=== PATIENT | female | born 1985 | race African-American/Black ===

== ENCOUNTER 2023-06-15 21:59 | Emergency (ER) | payer MEDICAID, OTHER ==
[~2023-06-15] VITALS: Ht 170.2 cm; Wt 103.0 kg
[2023-06-15 22:42] LABS: Basophils # (auto) 0.1 10 ^3/uL (0-0.2); Eosinophils # (auto) 0.2 10 ^3/uL (0-0.8); Hemoglobin 8.6 g/dL (12.2-16.2)
[2023-06-15 22:46] LABS: Hematocrit 28.6 % (36.0-46.0)
[2023-06-15 22:47] LABS: Basophils % (auto) 0.8 % (0.0-2.0); Eosinophils % (auto) 1.8 % (0.0-7.0); Lymphocytes # (auto) 3.7 10 ^3/uL (0.4-5.4); Lymphocytes % (auto) 30.6 % (10.0-50.0); Mean Corpuscular Hemoglobin 17.1 pg (28.0-32.0); Mean Corpuscular Hgb Conc. 29.9 g/dL (32.0-36.0); Mean Corpuscular Volume 57.2 fL (80.0-100.0); Monocytes % (auto) 7.9 % (0.0-12.0); Neutrophils # (auto) 7.1 10 ^3/uL (1.6-8.6); Neutrophils % (auto) 58.9 % (37.0-80.0); Nucleated Red Blood Cells % 0.2 %; Red Blood Cells 5.01 10^6/uL (4.0-5.20)
[2023-06-15 22:51] LABS: Red Cell Distribution Width 22.7 % (11.8-14.3)
[2023-06-15 23:01] LABS: Urine Bacteria FEW /hpf (None Seen); Urine Blood TRACE /uL (Negative); Urine Clarity HAZY (Clear); Urine Color Yellow (Yellow); Urine Mucus FEW (None Seen); Urine Protein, UAD 1+ (Negative); Urine Specific Gravity 1.029 (1.001-1.035); Urine WBC 40 /hpf (0 - 5)
[2023-06-15 23:01] LABS: Alanine Aminotransferase 13 U/L (7-40); Albumin 4.1 g/dL (3.2-4.8); Alkaline Phosphatase 69 U/L (46-116); Anion Gap 8 (5-15); Aspartate Aminotransferase 17 U/L (13-40); BUN/Creatinine Ratio 10.1 (10.0-20.0); Bilirubin, Total 0.3 mg/dL (0.2-1.0); Blood Urea Nitrogen 7 mg/dL (9-23); Calcium 9.3 mg/dL (8.5-10.1); Carbon Dioxide 23 mmol/L (20-30); Chloride 106 mmol/L (98-107); Glucose 83 mg/dL (74-106); Potassium 3.4 mmol/L (3.5-5.1); Sodium 137 mmol/L (136-145); Total Protein 7.2 g/dL (5.7-8.2)
[2023-06-15 23:28] LABS: Anisocytosis Slight; Platelet Estimate Adequate
[2023-06-15 23:29] LABS: Hypochromia Marked; Ovalocytes FEW
[2023-06-16] MEDS ORDERED: CEPH500C PO (01:44)
[2023-06-16 01:54] VITALS: BP 150/81; PULSE 74; RESP 20; TEMP 97.9; O2SAT 99
== END 2023-06-16 01:56 | disposition home or self-care (01) ==
LOC: ER 21:59
DX: O23.42 Unspecified infection of urinary tract in pregnancy, second trimester (principal); R10.2 Pelvic and perineal pain; Z3A.17 17 weeks gestation of pregnancy
CPT/HCPCS: 36415; 76805; 80053; 81001; 81025; 84702; 85025